=== PATIENT | male | born 1990 | race Two or more races ===

== ENCOUNTER 2017-02-24 17:20 | Emergency (ER) | payer MEDICAID, OTHER ==
[~2017-02-24] VITALS: Ht 170.2 cm; Wt 87.5 kg
[2017-02-24 17:31] VITALS: BP 145/78
== END 2017-02-24 19:58 | disposition home or self-care (01) ==
LOC: ER 17:20
DX: B02.9 Zoster without complications (principal)

== ENCOUNTER 2017-08-11 04:53 | Emergency (ER) | payer MEDICAID ==
[~2017-08-11] VITALS: Ht 170.2 cm; Wt 81.6 kg
[2017-08-11 07:09] VITALS: BP 148/89
== END 2017-08-11 07:16 | disposition home or self-care (01) ==
LOC: ER 04:54
DX: B02.23 Postherpetic polyneuropathy (principal); Z76.0 Encounter for issue of repeat prescription

== ENCOUNTER 2018-06-29 09:43 | Emergency (ER) | payer MEDICAID ==
[~2018-06-29] VITALS: Ht 170.2 cm; Wt 86.2 kg
[2018-06-29 10:00] VITALS: BP 140/86
== END 2018-06-29 11:59 | disposition home or self-care (01) ==
LOC: ER 09:43
DX: S66.911A Strain of unspecified muscle, fascia and tendon at wrist and hand level, right hand, initial encounter (principal); J02.9 Acute pharyngitis, unspecified; X58.XXXA Exposure to other specified factors, initial encounter; Y93.89 Activity, other specified; Y99.8 Other external cause status; Y92.89 Other specified places as the place of occurrence of the external cause
CPT/HCPCS: 73100